=== PATIENT | female | born 1995 ===

== ENCOUNTER 2019-04-14 16:25 | Emergency (ER) | payer OTHER ==
[2019-04-14 16:38] VITALS: BP 106/64
--- NOTE | 2019-04-14 16:41 | UC ---
Truncal Trauma HPI - HPI Summary HPI Summary: 23 yo female presents with LEFT rib pain. She tells me that 1 week ago she was snowboarding and fell onto her chest. Had pain in her central chest and left ribs immediately. Since that time has had pain in her left ribs that is worse with movement and palpation to the area. She has not taken anything OTC for her discomfort. Hurts to cough, sneeze, or take deep breaths. Better with rest. She is eating and drinking well. Denies abdominal pain, n/v, back pain, bruising. - History Of Current Complaint Chief Complaint: UCGeneralIllness Stated Complaint: L RIB INJURY Time Seen by Provider: 04/14/19 16:39 Hx Obtained From: Patient Hx Last Menstrual Period: unknown IUD Onset/Duration: Sudden Onset Severity Initially: Moderate Severity Currently: Moderate Pain Intensity: 6 Pain Scale Used: 0-10 Numeric - Allergies/Home Medications Allergies/Adverse Reactions: Allergies Allergy/AdvReac Type Severity Reaction Status Date / Time No Known Allergies Allergy Verified 04/14/19 16:38 Home Medications: Home Medications Mesalamine [Lialda] 1.2 tab PO DAILY 04/14/19 [History Confirmed 04/14/19] PMH/Surg Hx/FS Hx/Imm Hx - Additional Past Medical History Additional PMH: Ulcerative Colitis - Surgical History Surgical History: None - Family History Known Family History: Positive: Other - UC - Social History Occupation: Student Lives: With Family Alcohol Use: Weekly Alcohol Amount: weekends Substance Use Type: Marijuana Substance Use Comment - Amount & Last Used: barely Smoking Status (MU): Current Some Day Smoker Type: eCigarettes Amount Used/How Often: 3 cig/ weekends Review of Systems All Other Systems Reviewed And Are Negative: No Constitutional: Positive: Negative Skin: Positive: Negative Respiratory: Positive: Negative Cardiovascular: Positive: Negative Gastrointestinal: Positive: Negative Neurovascular: Positive: Negative Musculoskeletal: Positive: Other: - Left rib injury Neurological/Mental Status: Positive: Negative Psychological: Positive: Negative Physical Exam - Summary Physical Exam Summary: GENERAL: NAD. WDWN. No pain distress. SKIN: No rashes, sores, lesions, or open wounds. CHEST: CTAB. No accessory muscle use. Breathing comfortably and in no distress. CV: Pulses intact. Cap refill <2seconds MSK: LEFT RIBS: Mild ttp about 10th anteroaxillary rib. No edema or obvious bony deformities. Pain reproduced with movement of UEs and truncal twisting. ABD: Soft. NTTP. No ecchymosis. No RUQ or spleen tenderness. NEURO: Alert. PSYCH: Age appropriate behavior. Triage Information Reviewed: Yes Vital Signs: Initial Vital Signs Temp 99.7 F 04/14/19 16:33 Pulse 67 04/14/19 16:33 Resp 16 04/14/19 16:33 BP 106/64 04/14/19 16:33 Pulse Ox 99 04/14/19 16:33 Vital Signs Reviewed: Yes Diagnostics - Radiology Chest and ribs Radiology Interpretation Completed By: Radiologist Summary of Radiographic Findings: IMPRESSION: #. Negative exam. Truncal Trauma Course/Dx - Course Course Of Treatment: XR as above. Suspect rib contusion. Advised to rest, ice, and take tylenol/ibuprofen as directed for discomfort. - Differential Dx/Diagnosis Provider Diagnosis: Rib contusion Discharge ED - Sign-Out/Discharge Documenting (check all that apply): Patient Departure All imaging exams completed and their final reports reviewed: Yes - Discharge Plan Condition: Stable Disposition: HOME Patient Education Materials: Rib Contusion (ED) Referrals: No Primary Care Phys,NOPCP [Primary Care Provider] - Additional Instructions: The X-ray of your chest and ribs was normal today. I suspect you have a rib contusion that should heal with rest, time, and anti- inflammatory medication such as ibuprofen. Apply ice to the area to decrease pain. May try an mult-ixn-cowzfaj lidocaine patch to the area as well - Billing Disposition and Condition Condition: STABLE Disposition: Home
== END 2019-04-14 17:27 | disposition home or self-care (01) ==
LOC: UCEAST 16:25
DX: S20.212A Contusion of left front wall of thorax, initial encounter (principal); W19.XXXA Unspecified fall, initial encounter; Y93.23 Activity, snow (alpine) (downhill) skiing, snowboarding, sledding, tobogganing and snow tubing; Y92.9 Unspecified place or not applicable; F17.290 Nicotine dependence, other tobacco product, uncomplicated
CPT/HCPCS: 99201; G0463